=== PATIENT | male | born 1950 | race Caucasian/White ===

== ENCOUNTER 2021-05-12 00:21 | Emergency (ER) | payer MEDICARE, BC, SELFPAY ==
--- NOTE | 2021-05-12 00:22 | ECG_ITS ---
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 Measurements Intervals [place] Rate: 73 P: 51 NJ: 149 QRS: 83 QRSD: 150 T: 43 QT: 425 QTc: 471 Interpretive Statements SINUS RHYTHM WITH OCCASIONAL SUPRAVENTRICULAR PREMATURE COMPLEXES POSSIBLE LEFT ATRIAL ENLARGEMENT [-0.1mV P-WAVE IN V1/V2] INDETERMINATE AXIS RIGHT BUNDLE BRANCH BLOCK [120+ ms QRS DURATION, UPRIGHT V1, 40+ ms S IN I/aVL/V4/V5/V6] No previous ECG available for comparison Electronically Signed On 05-12-2021 17:12:17 DESIGN ENGINEER AGRICULTURAL EQUIPMENT by Gerardo De Luna M.D. [id number]
--- NOTE | 2021-05-12 00:22 | XRR_ITS ---
PROCEDURE INFORMATION: Exam: XR Chest Exam date and time: 05/12/2021 12:22 AM Age: 70 years old Clinical indication: Pain; Chest pressure; Prior surgery; Surgery date: 6+ months; Surgery type: Cabg; Additional info: Cp TECHNIQUE: Imaging protocol: XR of the chest. Views: 1 view. COMPARISON: No relevant prior studies available. FINDINGS: Lungs: Unremarkable. No consolidation. Pleural spaces: Unremarkable. No pleural effusion. No pneumothorax. Heart/Mediastinum: Unremarkable. No cardiomegaly. Bones/joints: Previous sternotomy. XR/XR chest 1V portable [id number] IMPRESSION: No acute findings.
--- NOTE | 2021-05-12 00:27 | W.ED.CHESTPA ---
HPI - Chest Pain General: Chief Complaint: Chest Pain Stated Complaint: CP Time Seen by Provider: 05/12/21 00:22 Source: patient and EMS Mode of arrival: EMS Limitations: no limitations History of Present Illness: 70-year-old male who has extensive coronary artery disease. He states that he had a cath done last week at [facility] in [place] where they did no intervention but did see significant disease in 1 to get him follow-up at [facility]. He states that tonight at 9 PM he started having pain is since resolved roughly 2 hours ago. He states resolved spontaneously get actually take an ambulance to [place] they were on divert so the ambulance called here who brought him here so he is had an extended transfer time. He denies any shortness of breath or diaphoresis with the pain and swelling his pain has previously. Associated symptoms: Deny abdominal pain, dyspnea, fever(s), nausea or vomiting Review of Systems Const: Denies: fever(s), chills, body aches or change in appetite Eyes: Denies: blurry vision or eye discomfort ENMT: Denies: throat pain or dental pain Card: Reports: chest pain Resp: Denies: dyspnea GI: Denies: abdominal pain, nausea, vomiting or diarrhea : Denies: dysuria Musc: Denies: neck pain or back pain Skin/Breast: Denies: rash Neuro: Denies: headache(s) Psych: Denies: depression David/Lymph: Denies: easy bruising All/Imm: Denies: urticaria PFSH ED PFSH: Medical History Coronary artery disease Family History Other CAD (coronary artery disease) Physical Exam Const: COMMON NORMALS: no acute distress, patient oriented x3 and healthy appearing HENMT: COMMON NORMALS: normocephalic and atraumatic HEAD & SCALP: normocephalic and atraumatic Eye: COMMON NORMALS: Equal, round and reactive pupils present and EOMs intact bilaterally PUPIL: Yes Equal, round and reactive pupils present Neck/C-Spine: COMMON NORMALS: full ROM and supple Chest: COMMONS NORMALS: normal inspection of the chest and normal palpation of entire chest wall Resp: COMMON NORMALS: normal respiratory effort, No retractions, No use of accessory muscles and clear to auscultation bilaterally AUSCULTATION: clear to auscultation bilaterally Cardio: COMMON NORMALS: regular rate, regular rhythm and No murmurs present (Cardio) RATE: regular rate RHYTHM: regular rhythm GI: COMMON NORMALS: Normal to inspection, nondistended, normoactive bowel sounds present, Soft to palpation, non-tender and no masses PALPATION: Yes Soft to palpation Extremity: COMMON NORMALS: normal to inspection and full ROM Neuro: COMMON NORMALS: patient oriented x3, moves all extremities and no focal motor deficits Psych: COMMON NORMALS: mental status grossly normal, Normal thought process present and cooperative THOUGHT PROCESS: Normal thought process present Skin: COMMON NORMALS: no rashes or lesions noted and no wounds GENERAL SKIN EXAM: no rashes or lesions noted Course Vital Signs: Vital signs: Vital Signs Temperature 97.6 F 05/12/21 00:33 Pulse Rate 76 05/12/21 00:33 Respiratory Rate 18 05/12/21 00:33 Blood Pressure 143/96 05/12/21 00:33 Pulse Oximetry 98 05/12/21 00:33 MDM - Chest Pain Medical Decision Making Patient presents here with chest pain is since been resolved his initial repeat troponins here are normal he did just have a cardiac cath last week he is well-appearing here he stable for discharge 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 Lab Data : 05/12/21 00:30 05/12/21 00:30 Radiology Impressions Chest X-Ray 05/12/21 00:22 IMPRESSION: No acute findings. Laboratory Results WBC 9.1 10^3/uL (4.0-10.0) 05/12/21 00:30 RBC 4.79 10^6/uL (4.1-5.3) 05/12/21 00:30 Hgb 15.6 g/dL (11.7-16.6) 05/12/21 00:30 Hct 44.3 % (42.0-52.0) 05/12/21 00:30 MCV 92.5 fl (80-94) 05/12/21 00:30 MCH 32.6 pg (28.0-34.0) 05/12/21 00:30 MCHC 35.2 g/dL (30.0-36.0) 05/12/21 00:30 RDW 11.6 % (12.1-15.1) L 05/12/21 00:30 Plt Count 224 10^3/cmm (130-400) 05/12/21 00:30 MPV 9.1 fL (7.4-10.4) 05/12/21 00:30 Neut % (Auto) 79.3 % 05/12/21 00:30 Lymph % (Auto) 13.8 % 05/12/21 00:30 Pratt % (Auto) 6.1 % 05/12/21 00:30 Eos % (Auto) 0.4 % 05/12/21 00:30 Baso % (Auto) 0.1 % 05/12/21 00:30 Neut # (Auto) 7.17 10^3/uL (1.8-7.7) 05/12/21 00:30 Lymph # (Auto) 1.3 10^3/uL (0.8-4.8) 05/12/21 00:30 Pratt # (Auto) 0.6 10^3/uL (0.2-0.9) 05/12/21 00:30 Eos # (Auto) 0.0 10^3/uL (0.0-0.8) 05/12/21 00:30 Baso # (Auto) 0.0 10^3/uL (0.0-0.1) 05/12/21 00:30 Nucleated RBC % (auto) 0 % 05/12/21 00:30 Nucleated RBCs # 0.0 /100WBC 05/12/21 00:30 Sodium 136 mmol/L (136-145) 05/12/21 00:30 Potassium 4.0 mmol/L (3.5-5.1) 05/12/21 00:30 Chloride 101 mmol/L (98-107) 05/12/21 00:30 Carbon Dioxide 24 mmol/L (22-29) 05/12/21 00:30 Anion Gap 15.0 (5-19) 05/12/21 00:30 BUN 19 mg/dL (8-23) 05/12/21 00:30 Creatinine 0.9 mg/dL (0.7-1.2) 05/12/21 00:30 GFR Calculation 83.9 mL/min (90-130) L 05/12/21 00:30 Glucose 111 mg/dL (65-115) 05/12/21 00:30 Calculated Osmolality 285 mOsm/kg (285-295) 05/12/21 00:30 Calcium 9.0 mg/dL (8.5-10.5) 05/12/21 00:30 Total Bilirubin 0.6 mg/dL (0.15-1.2) 05/12/21 00:30 AST 14 U/L (0-40) 05/12/21 00:30 ALT 10 U/L (0-41) 05/12/21 00:30 Alkaline Phosphatase 131 IU/L (40-130) H 05/12/21 00:30 Troponin T Baseline 11 ng/L (0-15) 05/12/21 00:30 Troponin T 120 Minute 10.74 ng/L (0-15) 05/12/21 01:46 Total Protein 6.8 g/dL (6.6-8.7) 05/12/21 00:30 Albumin 4.6 g/dL (3.5-5.2) 05/12/21 00:30 Globulin 2.2 g/dL (1.3-4.6) 05/12/21 00:30 Imaging Data CXR: Radiologist's impression: IMPRESSION: No acute findings. EKG Data EKG 1: I personally reviewed and interpreted this EKG as follows: EKG interpretation date: 05/12/21 EKG interpretation time: 00:29 Interpretation: nsr hr [address] or t wave abnormalities qrs 150 qtc 451 Discharge Plan Discharge Patient Disposition: Home Clinical Impression: Chest pain Condition: Stable Discharge Orders: Discharge ED (Routine); Ordered 05/12/21 Ordered By: Maria Ines Andino Discharge Diet: Advance as tolerated Discharge Activity: Resume usual activity Patient Instructions: Chest Pain (ED) Coding Level of Care Code ED Warranty Administrator for Chg Fwd Exam Comprehensive
[2021-05-12 00:33] VITALS: BP 143/96; PULSE 76; RESP 18; TEMP 36.4; O2SAT 98; BMI 25.8
[2021-05-12 01:04] LABS: Troponin(5th) Baseline 11 ng/L (0-15)
[2021-05-12 01:09] LABS: Alanine Aminotransferase 10 U/L (0-41); Albumin Level 4.6 g/dL (3.5-5.2); Alkaline Phosphatase 131 IU/L (40-130); Aspartate Amino Transferase 14 U/L (0-40); Blood Urea Nitrogen 19 mg/dL (8-23); Carbon Dioxide 24 mmol/L (22-29); Chloride 101 mmol/L (98-107); Creatinine Clr Calc Pharmacy 79.8716; Globulin 2.2 g/dL (1.3-4.6); Glomerular Filtration Rate 83.9 mL/min (90-130); Glucose 111 mg/dL (65-115); Osmolality Calculated 285 mOsm/kg (285-295); Sodium 136 mmol/L (136-145); Total Bilirubin 0.6 mg/dL (0.15-1.2); Total Protein 6.8 g/dL (6.6-8.7)
[2021-05-12 01:14] LABS: Basophils % 0.1 %; Eosinophils % 0.4 %; Hematocrit 44.3 % (42.0-52.0); Hemoglobin 15.6 g/dL (11.7-16.6); Lymphocytes # 1.3 10^3/uL (0.8-4.8); Lymphocytes % 13.8 %; Mean Corpuscular HGB Conc 35.2 g/dL (30.0-36.0); Mean Corpuscular Hemoglobin 32.6 pg (28.0-34.0); Mean Corpuscular Volume 92.5 fl (80-94); Mean Platelet Volume 9.1 fL (7.4-10.4); Monocytes # 0.6 10^3/uL (0.2-0.9); Monocytes % 6.1 %; Neutrophils # 7.17 10^3/uL (1.8-7.7); Neutrophils % 79.3 %; Nucleated Red Blood Cells % 0 %; Platelet Count 224 10^3/cmm (130-400); Red Blood Count 4.79 10^6/uL (4.1-5.3); Red Cell Distribution Width 11.6 % (12.1-15.1); White Blood Count 9.1 10^3/uL (4.0-10.0)
--- NOTE | 2021-05-12 02:22 | ECG_ITS ---
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 Measurements Intervals [place] Rate: 63 P: 59 SD: 176 QRS: 70 QRSD: 148 T: 59 QT: 428 QTc: 441 Interpretive Statements SINUS RHYTHM POSSIBLE LEFT ATRIAL ENLARGEMENT [-0.1mV P-WAVE IN V1/V2] RIGHT BUNDLE BRANCH BLOCK [120+ ms QRS DURATION, UPRIGHT V1, 40+ ms S IN I/aVL/V4/V5/V6] Compared to ECG 05/12/2021 00:29:37 Indeterminate axis no longer present Electronically Signed On 05-12-2021 20:57:23 LABORATORY HELPER by Gerardo De Luna M.D. [email or web address] [id number]
[2021-05-12 02:24] LABS: Troponin 5 2HR 10.74 ng/L (0-15)
[2021-05-12 03:41] VITALS: BP 143/94; PULSE 88; RESP 16; O2SAT 98
== END 2021-05-12 04:44 | disposition home or self-care (01) ==
PROVIDERS: Emergency Provider Emergency Medicine; PCP Internal Medicine
DX: R07.9 Chest pain, unspecified (principal); I25.10 Atherosclerotic heart disease of native coronary artery without angina pectoris
CPT/HCPCS: 71045; 80053; 84484; 85025; 93005; 99283

== ENCOUNTER 2022-07-28 09:05 | Outpatient (CLI) | payer MEDICARE, BC, SELFPAY ==
--- NOTE | 2022-07-28 09:17 | CT_ITS ---
WS: [id number] CT NECK TECHNIQUE: Contrast-enhanced CT of the neck with coronal and sagittal reformatted images. CLINICAL INFORMATION: DYSPHAGIA COMPARISON: None. DLP: 158.[address] scans at [facility] use at least one of these dose optimization techniques: automated e xposure control; mA and/or kV adjustment per patient size (includes targeted exams where dose is matc hed to clinical indication); or iterative reconstruction. FINDINGS: Partially visualized paranasal sinuses are well aerated. Small amount of fluid in the LEFT maxillary sinus compatible with mild sinusitis. Mastoid air cells well aerated. Normal posterior nasopharynx. N ormal parapharyngeal fat. Normal submandibular glands. Parotid glands are normal. No evidence of supraglottic or glottic mass. Normal subglottic airway. Normal thyroid gland. Lung api gregory are well aerated. Moderate carotid bulb calcification. Approximately 50% RIGHT ICA stenosis. This can be further evaluated with CTA. Moderate spondylitic changes cervical spine. Slight anterolisthesis C4 on C5. Disc osteophyte complex C3-C4 with mild central canal stenosis. CT/CT neck w con* [id number] IMPRESSION: 1. Normal salivary glands. 2. No evidence of supraglottic or glottic mass. 3. LEFT maxillary sinusitis. Mastoid air cells well aerated. 4. No cervical lymphadenopathy. 5. Carotid bulb calcification with approximately 50% RIGHT ICA stenosis. This can be further evaluated with CTA.
--- NOTE | 2022-07-28 09:17 | FL_ITS ---
WS: [id number] Exam: FL barium swallow [id number] Date/Time of Exam: 07/28/2022 9:59 AM Reason For Exam: DYSPHAGIA Fluoroscopy time: 2min [id number] minutes # of spot films: 10 There is moderate intrinsic circumferential narrowing of the cervical esophagus at the level of C6. A n underlying mass is not excluded. Swallowing function at the level of oropharynx was normal. The rem ainder of the esophagus was smooth in contour with normal motility. No gastroesophageal reflux was ob served. No hiatal hernia. The esophagus is not displaced. FL/FL barium swallow [id number] IMPRESSION: 1. Moderate intrinsic circumferential narrowing of the cervical esophagus at th e C6 level. An underlying esophageal stricture or mass is not excluded. Direct visualization with endoscopy is recommended for further workup. 2. The remainder of the esophagus was normal.
[2022-07-28 09:43] LABS: Blood Urea Nitrogen 18 mg/dL (8-23); Glomerular Filtration Rate 74.1 mL/min (90-130)
[2022-07-28] MEDS: iohexol 350 mg/mL 500 mL Btl (per mL) IV (09:49)
== END 2022-07-28 09:06 | disposition home or self-care (01) ==
PROVIDERS: PCP Internal Medicine; Visit Provider Specialist
DX: R13.10 Dysphagia, unspecified (principal); J32.0 Chronic maxillary sinusitis
CPT/HCPCS: 70491; 74220; 82565; 84520; Q9967